=== PATIENT | male | born 1945 | race Caucasian/White ===

== ENCOUNTER 2022-10-19 13:39 | Inpatient (IN) ==
[2022-10-19 14:58] LABS: Hematocrit 33.9 % (38-53); Hemoglobin 11.5 g/dL (13.2-16.3); Mean Corpuscular Hemoglobin 30.6 pg (27-33); Mean Corpuscular Hgb Conc 33.9 g/dL (31-36); Mean Corpuscular Volume 90.3 fL (80-97); Mean Platelet Volume 7.5 fL (7.5-11.2); Platelet Count 339 10^3/uL (150-450); Red Blood Count 3.75 10^6/uL (4.06-5.63); Red Cell Distribution Width 13.6 % (12-17); White Blood Count 23.7 10^3/uL (3.6-10.2)
[2022-10-19 15:03] LABS: INR 1.42 (0.83-1.13)
[2022-10-19 15:15] LABS: Albumin 3.6 g/dL (3.2-5.2); Albumin/Globulin Ratio 1.2 (1-3); Creatinine, Serum 0.84 mg/dL (0.67-1.17); Magnesium 1.7 mg/dL (1.9-2.7); Total Bilirubin 0.9 mg/dL (0.2-1.0); Total Protein 6.6 g/dL (6.4-8.9); eGFR CKD-EPI 90.9 (>60)
[2022-10-19 15:23] LABS: ABS Basophils 0.2 10^3/uL (0.0-0.1); ABS Eosinophils 0.1 10^3/uL (0.0-0.5); ABS Lymphocytes 1.1 10^3/uL (1.0-4.8); ABS Monocytes 2.7 10^3/uL (0.0-1.1); ABS Neutrophils 19.6 10^3/uL (1.5-7.6); ABS Nucleated RBC 0.01 10^3/ul; Eosinophil % 0.3 %; Lymphocyte % 4.8 %
[2022-10-19 15:50] LABS: TSH Ultra Thyroid Stim Horm 0.37 mcIU/mL (0.34-5.60)
[2022-10-19] MEDS ORDERED: Carbidopa/Levodop 25/100 MG TAB PO ONE (15:55)
[2022-10-19] MEDS ORDERED: Azithromycin 500 mg/250 ml NS 500 MG/250 ML BAG IVPB ONE (16:18)
[2022-10-19] MEDS ORDERED: Piperacillin/Tazobac 3.375 BAG 3.375 GM/100 ML BAG IV ONE (16:18)
[2022-10-19 16:48] LABS: High Sensitivity Troponin 1 Hr 12 pg/mL (<20)
[2022-10-19] MEDS ORDERED: Iohexol 300 (CONTRAST) 10 ML SDV IV ONE (17:57)
[2022-10-19] MEDS ORDERED: Acetaminophen IV 1 GM/100ML 1,000 MG/100 ML BAG IV PRN (18:30)
[2022-10-19] MEDS ORDERED: Mometasone/Formoter 200/5 MDI INH SCH (19:00)
[2022-10-19] MEDS ORDERED: Magnesium Sulfate IV 3 GM in NS 0.9% 100 ml BAG 100 ML IVPB ONE (19:51)
[2022-10-19] MEDS ORDERED: Carbidopa/Levodop CR 50/200 TAB.CR PO SCH (21:00)
[2022-10-19] MEDS: cefTRIAXone 1 gm/50 mL D5W 1 GM/50 ML BAG IV SCH (21:16)
[2022-10-19] MEDS: NS 0.9% 1000 ml BAG 1,000 ML IV SCH ×2 (21:16→22:55)
[2022-10-19] MEDS: Carbidopa/Levodop 25/100 MG TAB PO SCH ×2 (21:17→21:18)
[2022-10-19] MEDS: Enoxaparin 40 MG/0.4 ML SYR SUBCUT SCH (21:17)
[2022-10-20 01:58] LABS: Urine Appearance Clear; Urine Bilirubin Negative (Negative); Urine Blood Negative (Negative); Urine Color Amber; Urine Glucose Negative (Negative); Urine Ketones Trace (Negative); Urine Nitrite Negative (Negative); Urine Protein 2+(100 mg/dL) (Negative); Urine Specific Gravity 1.051 (1.002-1.030); Urine Urobilinogen Negative (Negative)
[2022-10-20 02:05] LABS: Urine Amorphous Crystals Present (Absent); Urine Bacteria 1+ (Absent); Urine Red Blood Cell Absent (Absent); Urine White Blood Cell Absent (Absent); Urine Yeast Present (Absent)
[2022-10-20] MEDS: Mometasone/Formoter 200/5 MDI INH SCH ×2 (07:34→19:13)
[2022-10-20] MEDS: Polyethylene Glycol 3350 17 GM PACKET PO SCH (10:26)
[2022-10-20] MEDS: CMCS: Rasagiline 1 mg TAB (NF) PO SCH (10:33)
[2022-10-20] MEDS: Carbidopa/Levodop 25/100 MG TAB PO SCH ×6 (10:33→22:03)
[2022-10-20] MEDS: Azithromycin 500 mg/250 ml NS 500 MG/250 ML BAG IVPB SCH (19:59)
[2022-10-20] MEDS: cefTRIAXone 1 gm/50 mL D5W 1 GM/50 ML BAG IV SCH (21:57)
[2022-10-20] MEDS: Enoxaparin 40 MG/0.4 ML SYR SUBCUT SCH (22:03)
[2022-10-21] MEDS: Mometasone/Formoter 200/5 MDI INH SCH ×2 (07:22→20:18)
[2022-10-21 08:43] LABS: Hematocrit 30.1 % (38-53); Hemoglobin 10.4 g/dL (13.2-16.3); Mean Corpuscular Hemoglobin 31.1 pg (27-33); Mean Corpuscular Hgb Conc 34.6 g/dL (31-36); Mean Corpuscular Volume 89.9 fL (80-97); Mean Platelet Volume 7.4 fL (7.5-11.2); Platelet Count 440 10^3/uL (150-450); Red Blood Count 3.35 10^6/uL (4.06-5.63); Red Cell Distribution Width 14.1 % (12-17); White Blood Count 19.9 10^3/uL (3.6-10.2)
[2022-10-21] MEDS: Carbidopa/Levodop 25/100 MG TAB PO SCH ×3 (08:58→20:46)
[2022-10-21] MEDS: CMCS: Rasagiline 1 mg TAB (NF) PO SCH (09:02)
[2022-10-21 09:04] LABS: Calcium 7.9 mg/dL (8.6-10.3); Creatinine, Serum 0.68 mg/dL (0.67-1.17); Potassium 4.2 mmol/L (3.5-5.0); eGFR CKD-EPI 96.9 (>60)
[2022-10-21] MEDS: Polyethylene Glycol 3350 17 GM PACKET PO SCH (09:04)
[2022-10-21] MEDS ORDERED: HYDROcodone/ACETAMIN 5/325 mg TAB PO ONE (09:58)
[2022-10-21] MEDS: cefTRIAXone 1 gm/50 mL D5W 1 GM/50 ML BAG IV SCH (19:20)
[2022-10-21 20:32] VITALS: BP 106/66
[2022-10-21] MEDS: Morphine ORAL CONCENTRATE 5 MG/0.25 ML ORAL.SYRIN PO PRN ×2 (20:35→22:39)
[2022-10-21] MEDS: Azithromycin 500 mg/250 ml NS 500 MG/250 ML BAG IVPB SCH (20:35)
[2022-10-21] MEDS ORDERED: Lorazepam PYXIS KEY PRN (21:16)
[2022-10-21] MEDS: LORazepam 2 mg VIAL 1 ml IV PUSH PRN ×2 (21:29→22:38)
[2022-10-22] MEDS: Morphine ORAL CONCENTRATE 5 MG/0.25 ML ORAL.SYRIN PO PRN ×5 (06:01→21:55)
[2022-10-22] MEDS: Mometasone/Formoter 200/5 MDI INH SCH ×2 (07:21→19:43)
[2022-10-22] MEDS: Carbidopa/Levodop 25/100 MG TAB PO SCH ×7 (07:25→21:52)
[2022-10-22] MEDS: Polyethylene Glycol 3350 17 GM PACKET PO SCH ×2 (09:09→13:38)
[2022-10-22] MEDS: CMCS: Rasagiline 1 mg TAB (NF) PO SCH ×2 (09:12→13:40)
[2022-10-22] MEDS: cefTRIAXone 1 gm/50 mL D5W 1 GM/50 ML BAG IV SCH (21:56)
[2022-10-23] MEDS: Morphine ORAL CONCENTRATE 5 MG/0.25 ML ORAL.SYRIN PO PRN ×4 (00:05→17:34)
[2022-10-23] MEDS: LORazepam 2 mg VIAL 1 ml IV PUSH PRN ×2 (00:05→14:08)
[2022-10-23] MEDS: Mometasone/Formoter 200/5 MDI INH SCH ×3 (07:27→19:42)
[2022-10-23] MEDS: Carbidopa/Levodop 25/100 MG TAB PO SCH ×5 (09:52→22:10)
[2022-10-23] MEDS: Polyethylene Glycol 3350 17 GM PACKET PO SCH (09:52)
[2022-10-23] MEDS: CMCS: Rasagiline 1 mg TAB (NF) PO SCH (09:53)
[2022-10-23 13:00] LABS: Levetiracetam 8.3 mcg/mL
[2022-10-23 14:05] LABS: Lamotrigine 7.7 mcg/mL (3.0-15.0)
[2022-10-24] MEDS: Morphine ORAL CONCENTRATE 5 MG/0.25 ML ORAL.SYRIN PO PRN ×6 (04:32→23:19)
[2022-10-24] MEDS: Polyethylene Glycol 3350 17 GM PACKET PO SCH (07:21)
[2022-10-24] MEDS: Mometasone/Formoter 200/5 MDI INH SCH ×2 (07:41→19:54)
[2022-10-24] MEDS: Carbidopa/Levodop 25/100 MG TAB PO SCH ×5 (09:36→20:51)
[2022-10-24] MEDS: CMCS: Rasagiline 1 mg TAB (NF) PO SCH (09:37)
[2022-10-24] MEDS: LORazepam 2 mg VIAL 1 ml IV PUSH PRN (14:46)
[2022-10-25] MEDS: Morphine ORAL CONCENTRATE 5 MG/0.25 ML ORAL.SYRIN PO PRN ×4 (05:57→20:07)
[2022-10-25] MEDS: LORazepam 2 mg VIAL 1 ml IV PUSH PRN ×2 (06:27→12:13)
[2022-10-25] MEDS: Mometasone/Formoter 200/5 MDI INH SCH ×2 (06:59→19:26)
[2022-10-25] MEDS: Polyethylene Glycol 3350 17 GM PACKET PO SCH (07:23)
[2022-10-25] MEDS: Carbidopa/Levodop 25/100 MG TAB PO SCH ×5 (07:23→21:29)
[2022-10-25] MEDS: CMCS: Rasagiline 1 mg TAB (NF) PO SCH (07:24)
[2022-10-26] MEDS: Morphine ORAL CONCENTRATE 5 MG/0.25 ML ORAL.SYRIN PO PRN ×2 (02:52→11:05)
[2022-10-26] MEDS: LORazepam 2 mg VIAL 1 ml IV PUSH PRN ×2 (03:01→11:12)
[2022-10-26] MEDS: Mometasone/Formoter 200/5 MDI INH SCH ×2 (07:57→19:55)
[2022-10-26] MEDS: Carbidopa/Levodop 25/100 MG TAB PO SCH ×2 (12:20→13:06)
[2022-10-26] MEDS: Polyethylene Glycol 3350 17 GM PACKET PO SCH (12:20)
[2022-10-26] MEDS: CMCS: Rasagiline 1 mg TAB (NF) PO SCH (12:21)
[2022-10-26] MEDS: Morphine ORAL.SOLN 10 mg 2 mg/ml UDC 5 ml (10 mg) PO SCH ×3 (14:50→22:40)
[2022-10-26] MEDS: Carbidopa/Levodopa ODT (NF) 25/100 ODT PO SCH ×4 (14:58→22:57)
[2022-10-26 18:48] LABS: Rapid COVID-19 Molecular Undetected (Undetected)
[2022-10-26] MEDS ORDERED: Carbidopa/Levodopa ODT (NF) 25/100 ODT PO SCH (21:00)
[2022-10-27] MEDS: Morphine ORAL.SOLN 10 mg 2 mg/ml UDC 5 ml (10 mg) PO SCH ×2 (02:38→06:02)
[2022-10-27] MEDS: Mometasone/Formoter 200/5 MDI INH SCH (07:08)
[2022-10-27] MEDS: Polyethylene Glycol 3350 17 GM PACKET PO SCH (08:07)
[2022-10-27] MEDS: CMCS: Rasagiline 1 mg TAB (NF) PO SCH (08:10)
[2022-10-27] MEDS: Carbidopa/Levodopa ODT (NF) 25/100 ODT PO SCH (08:20)
[2022-10-27] MEDS: Morphine ORAL CONCENTRATE 5 MG/0.25 ML ORAL.SYRIN PO PRN (09:18)
== END 2022-10-27 09:22 | disposition hospice, inpatient (51) | DRG 871 ==
LOC: ED 13:39 → EDHOLD 13:39 → SUATTDRO 16:34 → MEDTELE 22:37 → SUATTDRO 10-21 15:26 → MEDTELE 10-21 18:36
PROVIDERS: ADMIT Internal Medicine; ATTEND Internal Medicine